=== PATIENT | female | born 1950 | race Caucasian/White ===

== ENCOUNTER 2021-01-08 12:32 | Inpatient (IN) ==
[2021-01-08] MEDS ORDERED: Piperacillin/Tazobac ADVAN 3.375 GM in NS 0.9% 100 ml BAG 100 ML IV ONE (15:41)
[2021-01-08] MEDS ORDERED: Zosyn per Pharmacy NOTE FOLLOW UP SCH (16:00)
[2021-01-08 16:18] LABS: ABS Neutrophils 0.6 10^3/ul (1.5-7.7); Hematocrit 33 % (35-47); Hemoglobin 11.4 g/dL (12.0-16.0); Lymphocyte % 4.1 %; Mean Corpuscular HGB Conc 34 g/dL (31-36); Mean Corpuscular Hemoglobin 32 pg (27-31); Mean Corpuscular Volume 93 fL (80-97); Mean Platelet Volume 7.5 fL (7.4-10.4); Platelet Count 29 10^3/uL (150-450); Red Blood Count 3.59 10^6 /uL (3.70-4.87); Red Cell Distribution Width 15 % (10-15); White Blood Count 0.6 10^3/uL (3.5-10.8)
[2021-01-08 16:48] LABS: Troponin I 0.07 ng/mL (<0.03)
[2021-01-08 16:55] LABS: ALT 53 U/L (7-52); AST 66 U/L (13-39); Albumin 2.6 g/dL (3.2-5.2); Albumin/Globulin Ratio 1.2 (1-3); Alkaline Phosphatase 64 U/L (35-149); Anion Gap 14 mmol/L (2-11); Blood Urea Nitrogen 52 mg/dL (6-24); CO2 Carbon Dioxide 17 mmol/L (22-32); Calcium 6.8 mg/dL (8.6-10.3); Chloride 98 mmol/L (101-111); Globulin 2.1 g/dL (2-4); Glucose 93 mg/dL (70-100); Magnesium 1.3 mg/dL (1.9-2.7); Phosphorus 3.1 mg/dL (2.5-5.0); Potassium 3.8 mmol/L (3.5-5.0); Sodium 129 mmol/L (135-145); Total Protein 4.7 g/dL (6.4-8.9)
[2021-01-08] MEDS ORDERED: Vancomycin per Pharmacy 1 EA NOTE FOLLOW UP SCH (17:00)
[2021-01-08 17:14] LABS: INR 2.66 (0.86-1.15)
[2021-01-08] MEDS ORDERED: .Amiodarone 24HR ONLY IV Protocol Order Note IV ONE (17:32)
[2021-01-08] MEDS: ZOSYN 3.375 GM Q12H per EXTENDED INFUSION IV SCH (17:36)
[2021-01-08] MEDS ORDERED: Amiodarone 150 mg IVPREMIX 150 MG/100 ML BAG IV ONE (18:00)
[2021-01-08] MEDS: Ondansetron 4 mg VIAL 2 MG/ML 2 ml VIAL IV PRN (18:03)
[2021-01-08] MEDS ORDERED: Levalbuterol 1.25MG/0.5ML NEB.SOL INH PRN (18:10)
[2021-01-08] MEDS ORDERED: Amiodarone 360 MG IVPREMIX 360 MG/200 ML BAG IV SCH (18:10)
[2021-01-08] MEDS ORDERED: Magnesium Sulf 4 GM/100 ML IV 4,000 MG/100 ML BAG IVPB ONE (18:31)
[2021-01-08 19:04] LABS: Rapid COVID-19 Molecular Undetected (Undetected)
[2021-01-08] MEDS ORDERED: ACETYLCYSTEINE IV ONE ×2 (20:00→21:15)
[2021-01-08] MEDS ORDERED: D5W IV ONE ×2 (20:00→21:15)
[2021-01-08] MEDS: SPIRIVA Respimat (tiotropium) 2.5 mcg/inh Inhaler INH SCH (20:34)
[2021-01-08] MEDS: Mometasone/Formoter 200/5 MDI INH SCH (20:35)
[2021-01-08 20:39] LABS: Troponin I 0.07 ng/mL (<0.03)
[2021-01-08] MEDS ORDERED: LORazepam 2 mg VIAL 1 ml IV PUSH ONE (22:38)
[2021-01-08] MEDS ORDERED: Lorazepam PYXIS KEY PRN (22:38)
[2021-01-08] MEDS: Amiodarone 360 MG IVPREMIX 360 MG/200 ML BAG IV SCH (23:42)
[2021-01-09] MEDS ORDERED: ACETYLCYSTEINE IV ONE (01:23)
[2021-01-09] MEDS ORDERED: D5W IV ONE (01:23)
[2021-01-09 04:42] LABS: Albumin 2.4 g/dL (3.2-5.2); Albumin/Globulin Ratio 1.1 (1-3); Direct Bilirubin 1.7 mg/dL (0.03-0.18); Globulin 2.1 g/dL (2-4); Potassium 3.1 mmol/L (3.5-5.0); Total Bilirubin 2.6 mg/dL (0.2-1.0); Total Protein 4.5 g/dL (6.4-8.9)
[2021-01-09 04:47] LABS: Vancomycin Random 13.4 mcg/mL
[2021-01-09 04:48] LABS: Activated Partial Thrombo Time 29.8 seconds (26.0-38.0); INR 2.47 (0.86-1.15)
[2021-01-09 04:49] LABS: Fibrinogen > 532.4 mg/dL (110.8-404.3)
[2021-01-09 04:54] LABS: Burr Cells 2+
[2021-01-09 04:56] LABS: Schistocytes ABSENT
[2021-01-09 04:56] LABS: ABS Neutrophils 0.4 10^3/ul (1.5-7.7); Eosinophil % 0.4 %; Hematocrit 32 % (35-47); Hemoglobin 10.9 g/dL (12.0-16.0); Lymphocyte % 10.4 %; Mean Corpuscular HGB Conc 34 g/dL (31-36); Mean Corpuscular Hemoglobin 32 pg (27-31); Mean Corpuscular Volume 93 fL (80-97); Mean Platelet Volume 8.9 fL (7.4-10.4); Platelet Count 14 10^3/uL (150-450); Red Blood Count 3.46 10^6 /uL (3.70-4.87); Red Cell Distribution Width 15 % (10-15); White Blood Count 0.5 10^3/uL (3.5-10.8)
[2021-01-09] MEDS ORDERED: Vancomycin Random Level NOTE FOLLOW UP ONE (06:00)
[2021-01-09] MEDS ORDERED: Potassium Chlor 20 meq TAB.ER PO SCH (06:00)
[2021-01-09 06:11] LABS: Magnesium 3.1 mg/dL (1.9-2.7)
[2021-01-09] MEDS: ZOSYN 3.375 GM Q12H per EXTENDED INFUSION IV SCH (06:23)
[2021-01-09] MEDS: Mometasone/Formoter 200/5 MDI INH SCH ×2 (07:19→19:13)
[2021-01-09] MEDS: SPIRIVA Respimat (tiotropium) 2.5 mcg/inh Inhaler INH SCH (07:19)
[2021-01-09] MEDS ORDERED: Vancomycin 1,000 MG - ONCE IVPB ONE (08:00)
[2021-01-09] MEDS: KCL 20 MEQ/100 ML IVPREMIX 20 MEQ/100 ML BAG IV SCH ×2 (08:20→11:22)
[2021-01-09] MEDS ORDERED: Lactated Ringers 1000 ml BAG 1,000 ML IV ONE (08:50)
[2021-01-09] MEDS ORDERED: NS 0.9% w/ 20 Meq KCL 1000 ml 1,000 ML IV SCH (09:00)
[2021-01-09] MEDS ORDERED: CMCS: Simvastatin 20 mg TAB (NF) PO SCH (09:00)
[2021-01-09 11:00] LABS: Phosphorus 3.5 mg/dL (2.5-5.0)
[2021-01-09] MEDS ORDERED: Albuterol/Ipratropium NEB.SOL (2.5/0.5 MG) 3 ML NEB.SOLN INH SCH ×2 (11:00→13:00)
[2021-01-09] MEDS: Pantoprazole VIAL 40 MG VIAL IV SCH (11:22)
[2021-01-09] MEDS: methylPREDNISolone SOD 40 mg/ml 1 ml VIAL IV SCH ×2 (11:22→21:57)
[2021-01-09] MEDS: Amiodarone 360 MG IVPREMIX 360 MG/200 ML BAG IV SCH (11:37)
[2021-01-09] MEDS: Esmolol 10 MG/ML IVPREMIX 2,500 MG/250 ML BAG IV SCH ×2 (12:00→23:52)
[2021-01-09] MEDS: Levalbuterol 0.63MG/3ML NEB UNIT OF USE INH SCH ×4 (13:47→23:56)
[2021-01-09 15:55] LABS: Urine Appearance Turbid; Urine Bilirubin Negative (Negative); Urine Blood 3+ (Negative); Urine Color Amber; Urine Glucose Negative (Negative); Urine Ketones 1+ (Negative); Urine Nitrite Negative (Negative); Urine Protein 2+(100 mg/dL) (Negative); Urine Specific Gravity 1.016 (1.002-1.030); Urine Urobilinogen Negative (Negative)
[2021-01-09 16:00] LABS: Urine Bacteria Absent (Absent); Urine Red Blood Cell 3+(>10/hpf) (Absent); Urine White Blood Cell Trace(0-5/hpf) (Absent)
[2021-01-09] MEDS ORDERED: Morphine 2 MG/ML SYRINGE IV PRN (16:21)
[2021-01-09 17:55] LABS: Albumin 2.3 g/dL (3.2-5.2); Albumin/Globulin Ratio 1.2 (1-3); Calcium 7.2 mg/dL (8.6-10.3); Globulin 1.9 g/dL (2-4); Potassium 3.9 mmol/L (3.5-5.0); Total Bilirubin 2.5 mg/dL (0.2-1.0); Total Protein 4.2 g/dL (6.4-8.9)
[2021-01-09 17:56] LABS: Ammonia 86 mcmol/L (16-53)
[2021-01-09] MEDS: Meropenem 1 GM PREMIX(*) 1 GM/50 ML BAG IV SCH (17:58)
[2021-01-09 18:01] LABS: BNP 400 pg/mL (<=100)
[2021-01-09 18:07] LABS: INR 2.45 (0.86-1.15)
[2021-01-09 18:17] LABS: Hematocrit 31 % (35-47); Hemoglobin 10.4 g/dL (12.0-16.0); Mean Corpuscular HGB Conc 34 g/dL (31-36); Mean Corpuscular Hemoglobin 32 pg (27-31); Mean Corpuscular Volume 93 fL (80-97); Mean Platelet Volume 9.4 fL (7.4-10.4); Platelet Count 8 10^3/uL (150-450); Red Blood Count 3.29 10^6 /uL (3.70-4.87); Red Cell Distribution Width 15 % (10-15); White Blood Count 0.6 10^3/uL (3.5-10.8)
[2021-01-09 18:20] LABS: Urine Creatinine Concentration 49.59 mg/dL
[2021-01-09 18:45] LABS: ABS Lymphocytes 0.1 10^3/ul (1.0-4.8); ABS Neutrophils 0.5 10^3/ul (1.5-7.7); Eosinophil % 0.1 %; Lymphocyte % 10.2 %; Nucleated Red Blood Cells % 0.3
[2021-01-09] MEDS ORDERED: Lactulose 300 ML for PR 200 GM/300 ML BTL PR SCH (21:00)
[2021-01-09] MEDS: Ondansetron 4 mg VIAL 2 MG/ML 2 ml VIAL IV PRN (21:21)
[2021-01-10] MEDS: Levalbuterol 0.63MG/3ML NEB UNIT OF USE INH SCH ×5 (04:11→19:26)
[2021-01-10 04:24] LABS: Mean Platelet Volume 6.8 fL (7.4-10.4); Platelet Count 42 10^3/uL (150-450)
[2021-01-10 04:27] LABS: ABS Neutrophils 0.6 10^3/ul (1.5-7.7); Eosinophil % 0.4 %; Hematocrit 28 % (35-47); Hemoglobin 9.8 g/dL (12.0-16.0); Lymphocyte % 6.3 %; Mean Corpuscular HGB Conc 35 g/dL (31-36); Mean Corpuscular Hemoglobin 31 pg (27-31); Mean Corpuscular Volume 90 fL (80-97); Mean Platelet Volume 6.6 fL (7.4-10.4); Nucleated Red Blood Cells % 0.4; Platelet Count 40 10^3/uL (150-450); Red Blood Count 3.13 10^6 /uL (3.70-4.87); Red Cell Distribution Width 15 % (10-15); White Blood Count 0.7 10^3/uL (3.5-10.8)
[2021-01-10 04:35] LABS: Albumin 2.3 g/dL (3.2-5.2); Albumin/Globulin Ratio 1.2 (1-3); Calcium 7.4 mg/dL (8.6-10.3); Globulin 1.9 g/dL (2-4); Magnesium 2.6 mg/dL (1.9-2.7); Phosphorus 5.4 mg/dL (2.5-5.0); Potassium 3.8 mmol/L (3.5-5.0); Total Bilirubin 2.5 mg/dL (0.2-1.0); Total Protein 4.2 g/dL (6.4-8.9)
[2021-01-10 05:04] LABS: Vancomycin Random 22.7 mcg/mL
[2021-01-10] MEDS: Ondansetron 4 mg VIAL 2 MG/ML 2 ml VIAL IV PRN ×2 (05:17→11:28)
[2021-01-10] MEDS: Meropenem 1 GM PREMIX(*) 1 GM/50 ML BAG IV SCH ×2 (05:56→17:16)
[2021-01-10] MEDS ORDERED: Vancomycin Random Level NOTE FOLLOW UP ONE (06:00)
[2021-01-10] MEDS: SPIRIVA Respimat (tiotropium) 2.5 mcg/inh Inhaler INH SCH (07:09)
[2021-01-10] MEDS: Mometasone/Formoter 200/5 MDI INH SCH ×2 (07:09→19:27)
[2021-01-10] MEDS: Pantoprazole VIAL 40 MG VIAL IV SCH (08:31)
[2021-01-10] MEDS: methylPREDNISolone SOD 40 mg/ml 1 ml VIAL IV SCH (11:28)
[2021-01-10] MEDS: Esmolol 10 MG/ML IVPREMIX 2,500 MG/250 ML BAG IV SCH (12:55)
[2021-01-10] MEDS ORDERED: NORMOSOL-R pH 7.4 1000 mL BAG 1,000 ML IV SCH (14:00)
[2021-01-10] MEDS ORDERED: Morphine 2 MG/ML SYRINGE IV ONE (17:39)
[2021-01-10] MEDS ORDERED: Morphine 2 MG/ML SYRINGE ONE (17:40)
[2021-01-11] LABS: Calcium 7.8 mg/dL (8.6-10.3); Magnesium 2.7 mg/dL (1.9-2.7); Phosphorus 6.9 mg/dL (2.5-5.0); Potassium 4.1 mmol/L (3.5-5.0)
[2021-01-11 00:01] LABS: Hematocrit 29 % (35-47); Hemoglobin 10.1 g/dL (12.0-16.0); Mean Corpuscular HGB Conc 35 g/dL (31-36); Mean Corpuscular Hemoglobin 31 pg (27-31); Mean Corpuscular Volume 91 fL (80-97); Mean Platelet Volume 8.9 fL (7.4-10.4); Platelet Count 10 10^3/uL (150-450); Red Blood Count 3.21 10^6 /uL (3.70-4.87); Red Cell Distribution Width 15 % (10-15)
[2021-01-11 00:49] LABS: Burr Cells 3+
[2021-01-11 00:53] LABS: ABS Neutrophils 0.2 10^3/ul (1.5-7.7)
[2021-01-11 00:54] LABS: ABS Lymphocytes 0.1 10^3/ul (1.0-4.8)
[2021-01-11 00:55] LABS: White Blood Count 0.6 10^3/uL (3.5-10.8)
[2021-01-11] MEDS: Esmolol 10 MG/ML IVPREMIX 2,500 MG/250 ML BAG IV SCH (02:01)
[2021-01-11] MEDS: Levalbuterol 0.63MG/3ML NEB UNIT OF USE INH SCH ×3 (03:52→19:17)
[2021-01-11] MEDS: Meropenem 1 GM PREMIX(*) 1 GM/50 ML BAG IV SCH (04:46)
[2021-01-11 05:09] LABS: ABS Lymphocytes 0.1 10^3/ul (1.0-4.8); ABS Monocytes 0.3 10^3/ul (0-0.8); ABS Neutrophils 0.1 10^3/ul (1.5-7.7); Eosinophil % 4.3 %; Hematocrit 29 % (35-47); Lymphocyte % 23.6 %; Mean Corpuscular HGB Conc 35 g/dL (31-36); Mean Corpuscular Hemoglobin 32 pg (27-31); Mean Corpuscular Volume 91 fL (80-97); Mean Platelet Volume 11.1 fL (7.4-10.4); Nucleated Red Blood Cells % 0.6; Platelet Count 8 10^3/uL (150-450); Red Blood Count 3.17 10^6 /uL (3.70-4.87); Red Cell Distribution Width 16 % (10-15); White Blood Count 0.6 10^3/uL (3.5-10.8)
[2021-01-11 05:24] LABS: Magnesium 2.8 mg/dL (1.9-2.7); Phosphorus 7.4 mg/dL (2.5-5.0); Potassium 4.1 mmol/L (3.5-5.0)
[2021-01-11] MEDS: Mometasone/Formoter 200/5 MDI INH SCH ×2 (07:28→19:17)
[2021-01-11] MEDS: SPIRIVA Respimat (tiotropium) 2.5 mcg/inh Inhaler INH SCH (07:30)
[2021-01-11] MEDS ORDERED: Desmopressin Acetate 20 MCG in NS 0.9% 50 ML 50 ML IVPB ONE (08:10)
[2021-01-11] MEDS: Pantoprazole VIAL 40 MG VIAL IV SCH (08:47)
[2021-01-11] MEDS: methylPREDNISolone SOD 40 mg/ml 1 ml VIAL IV SCH (08:47)
[2021-01-11 09:44] LABS: Hematocrit 28 % (35-47); Hemoglobin 9.8 g/dL (12.0-16.0); Mean Corpuscular HGB Conc 35 g/dL (31-36); Mean Corpuscular Hemoglobin 32 pg (27-31); Mean Corpuscular Volume 91 fL (80-97); Mean Platelet Volume 6.5 fL (7.4-10.4); Platelet Count 39 10^3/uL (150-450); RBC Morphology Normal (Normal); Red Blood Count 3.05 10^6 /uL (3.70-4.87); Red Cell Distribution Width 16 % (10-15); White Blood Count 0.6 10^3/uL (3.5-10.8)
[2021-01-11 09:45] LABS: ABS Lymphocytes 0.1 10^3/ul (1.0-4.8)
[2021-01-11 09:46] LABS: ABS Neutrophils 0.5 10^3/ul (1.5-7.7)
[2021-01-11] MEDS ORDERED: Lactulose 30 ml UDC PO ONE (11:33)
[2021-01-11] MEDS ORDERED: Metoprolol Tartrate 5 mg VIAL 5 ml VIAL (1 mg/ml) IV PRN ×3 (11:34→11:41)
[2021-01-11] MEDS ORDERED: NORMOSOL-R pH 7.4 1000 mL BAG 1,000 ML IV SCH (13:00)
[2021-01-11 13:36] LABS: Platelet Count 14 10^3/ul (150-450)
[2021-01-11] MEDS: Magic MouthWash1-BEN/MAAL/LIDO 180 ML BTL SWISH SPIT SCH ×2 (15:12→21:04)
[2021-01-12] MEDS: Levalbuterol 0.63MG/3ML NEB UNIT OF USE INH SCH ×2 (04:40→21:00)
[2021-01-12 05:03] LABS: PCO2 Arterial 34 mmHg (35-45); PO2 Arterial 102 mmHg (80-100)
[2021-01-12] MEDS: Meropenem 1 GM PREMIX(*) 1 GM/50 ML BAG IV SCH (05:39)
[2021-01-12 05:44] LABS: Calcium 8.4 mg/dL (8.6-10.3); Magnesium 2.8 mg/dL (1.9-2.7); Potassium 4.1 mmol/L (3.5-5.0)
[2021-01-12] MEDS ORDERED: Metoprolol Tartrate 5 mg VIAL 5 ml VIAL (1 mg/ml) IV PRN (05:46)
[2021-01-12 05:50] LABS: Phosphorus 9.4 mg/dL (2.5-5.0)
[2021-01-12] MEDS: Metoprolol Tartrate 5 mg VIAL 5 ml VIAL (1 mg/ml) IV PRN ×3 (06:07→23:25)
[2021-01-12 06:51] LABS: ABS Lymphocytes 0.2 10^3/ul (1.0-4.8); ABS Monocytes 0.1 10^3/ul (0-0.8); ABS Neutrophils 0.1 10^3/ul (1.5-7.7); Eosinophil % 1.9 %; Hematocrit 27 % (35-47); Hemoglobin 9.5 g/dL (12.0-16.0); Lymphocyte % 35.2 %; Mean Corpuscular HGB Conc 35 g/dL (31-36); Mean Corpuscular Hemoglobin 32 pg (27-31); Mean Corpuscular Volume 91 fL (80-97); Mean Platelet Volume 9.3 fL (7.4-10.4); Nucleated Red Blood Cells % 2.3; Platelet Count 12 10^3/uL (150-450); Red Blood Count 2.97 10^6 /uL (3.70-4.87); Red Cell Distribution Width 16 % (10-15); White Blood Count 0.5 10^3/uL (3.5-10.8)
[2021-01-12 06:52] LABS: Anisocytosis 1+; Burr Cells 1+; Target Cells 1+
[2021-01-12] MEDS: Mometasone/Formoter 200/5 MDI INH SCH (09:07)
[2021-01-12] MEDS: Pantoprazole VIAL 40 MG VIAL IV SCH (09:17)
[2021-01-12] MEDS: Magic MouthWash1-BEN/MAAL/LIDO 180 ML BTL SWISH SPIT SCH ×4 (09:18→20:28)
[2021-01-12] MEDS: methylPREDNISolone SOD 40 mg/ml 1 ml VIAL IV SCH (09:18)
[2021-01-12] MEDS: SPIRIVA Respimat (tiotropium) 2.5 mcg/inh Inhaler INH SCH (09:34)
[2021-01-12] MEDS ORDERED: Levalbuterol 0.63MG/3ML NEB UNIT OF USE INH PRN (09:37)
[2021-01-12] MEDS ORDERED: Desmopressin Acetate 20 MCG in NS 0.9% 50 ML 50 ML IVPB ONE (11:00)
[2021-01-12] MEDS ORDERED: Lidocaine 1% VIAL 10 MG/ML VIAL ONE ×2 (11:27→14:48)
[2021-01-12] MEDS ORDERED: Dextrose 50% Syringe 50 ml 25 GM/50 ML SYRINGE IV PUSH ONE (11:45)
[2021-01-12] MEDS ORDERED: Dextrose 50% Syringe 50 ml 25 GM/50 ML SYRINGE ONE (11:46)
[2021-01-12] MEDS: Budesonide NEB 0.5 MG/2 ML NEB.SOLN INH SCH ×2 (11:49→19:18)
[2021-01-12 12:00] LABS: INR 4.31 (0.86-1.15)
[2021-01-12] MEDS ORDERED: Midazolam 2 mg/2 ml VIAL 1 mg/ml 2 ml VIAL (2 mg) ONE (12:00)
[2021-01-12] MEDS ORDERED: fentaNYL 100 mcg/2 ml 50 MCG/ML VIAL ONE (12:21)
[2021-01-12] MEDS ORDERED: Heparin 1,000 UNIT/ML 10 ml (10,000 UNITS) CATHLAB/DIALYSIS DIALYSIS ONE (13:04)
[2021-01-12] MEDS ORDERED: PHENYLEPHRINE DRIP IVPREMIX 50 MG/250 ML BAG IV SCH (14:00)
[2021-01-12 15:56] LABS: Hepatitis B Surface Antigen Nonreactive (Nonreactive)
[2021-01-12] MEDS ORDERED: Bumetanide IV 0.25 MG/ML 4 ml VIAL (1 mg) SLOW PUSH ONE (20:15)
[2021-01-12 23:35] LABS: Hepatitis B Surface Ab Indeterminate (Immune)
[2021-01-12] MEDS ORDERED: Dexmedetomidine 1,000 MCG in NS 0.9% 250 ml 240 ML IV SCH (23:45)
[2021-01-13] MEDS: Levalbuterol 0.63MG/3ML NEB UNIT OF USE INH SCH ×4 (02:40→21:31)
[2021-01-13 04:46] LABS: INR 2.84 (0.86-1.15)
[2021-01-13 04:53] LABS: Albumin 2.5 g/dL (3.2-5.2); Albumin/Globulin Ratio 1.1 (1-3); Calcium 8.4 mg/dL (8.6-10.3); Globulin 2.2 g/dL (2-4); Magnesium 2.4 mg/dL (1.9-2.7); Phosphorus 7.6 mg/dL (2.5-5.0); Potassium 3.9 mmol/L (3.5-5.0); Total Bilirubin 5.3 mg/dL (0.2-1.0); Total Protein 4.7 g/dL (6.4-8.9); eGFR CKD-EPI 10.8 (>60)
[2021-01-13 05:18] LABS: Target Cells 1+
[2021-01-13 05:19] LABS: Burr Cells 1+
[2021-01-13 05:20] LABS: Hematocrit 22 % (35-47); Hemoglobin 7.6 g/dL (12.0-16.0); Mean Corpuscular HGB Conc 35 g/dL (31-36); Mean Corpuscular Hemoglobin 32 pg (27-31); Mean Corpuscular Volume 91 fL (80-97); Mean Platelet Volume 8.8 fL (7.4-10.4); Platelet Count 11 10^3/uL (150-450); Red Blood Count 2.41 10^6 /uL (3.70-4.87); Red Cell Distribution Width 15 % (10-15); White Blood Count 0.6 10^3/uL (3.5-10.8)
[2021-01-13] MEDS: Meropenem 1 GM PREMIX(*) 1 GM/50 ML BAG IV SCH (05:46)
[2021-01-13] MEDS: Metoprolol Tartrate 5 mg VIAL 5 ml VIAL (1 mg/ml) IV PRN (05:46)
[2021-01-13] MEDS ORDERED: Heparin 1,000 UNIT/ML 10 ml (10,000 UNITS) CATHLAB/DIALYSIS DIALYSIS ONE (07:00)
[2021-01-13] MEDS: Budesonide NEB 0.5 MG/2 ML NEB.SOLN INH SCH ×2 (07:29→21:31)
[2021-01-13] MEDS ORDERED: Digoxin IV 0.5 MG/2 ML AMP (0.25 MG/ML) ONE (08:30)
[2021-01-13] MEDS: DIGOXIN PED ONE ×2 (08:35→11:20)
[2021-01-13] MEDS ORDERED: Digoxin IV 0.5 MG/2 ML AMP (0.25 MG/ML) IV SLOW PU ONE ×2 (08:40→12:08)
[2021-01-13] MEDS: Pantoprazole VIAL 40 MG VIAL IV SCH ×2 (10:59→22:50)
[2021-01-13] MEDS: methylPREDNISolone SOD 40 mg/ml 1 ml VIAL IV SCH (10:59)
[2021-01-13] MEDS: PHENYLEPHRINE DRIP IVPREMIX 50 MG/250 ML BAG IV SCH (11:07)
[2021-01-13] MEDS: Magic MouthWash1-BEN/MAAL/LIDO 180 ML BTL SWISH SPIT SCH ×4 (11:07→22:48)
[2021-01-13] MEDS ORDERED: Dextrose 50% VIAL 50 ml IV PRN (12:10)
[2021-01-13] MEDS ORDERED: Dextrose 50% Syringe 50 ml 25 GM/50 ML SYRINGE ONE (12:12)
[2021-01-13] MEDS ORDERED: Morphine 2 MG/ML SYRINGE IV ONE (12:57)
[2021-01-13] MEDS ORDERED: Morphine 2 MG/ML SYRINGE ONE (13:05)
[2021-01-13] MEDS: Morphine 2 MG/ML SYRINGE IV PRN (13:10)
[2021-01-13] MEDS ORDERED: Lidocaine 4% GEL 10 GM TUBE TOPICAL ONE (16:47)
[2021-01-13] MEDS ORDERED: Oral Rinse (Biotene)(NF) 237 ML or 473 ML ORAL RINSE BTL MT SCH (17:00)
[2021-01-13 19:07] LABS: ABS Lymphocytes 0.1 10^3/ul (1.0-4.8); ABS Neutrophils 0.5 10^3/ul (1.5-7.7); ABS Nucleated RBC 0.1 10^3/ul; Eosinophil % 1.1 %; Hematocrit 22 % (35-47); Hemoglobin 7.5 g/dL (12.0-16.0); Lymphocyte % 17.2 %; Mean Corpuscular HGB Conc 35 g/dL (31-36); Mean Corpuscular Hemoglobin 32 pg (27-31); Mean Corpuscular Volume 91 fL (80-97); Nucleated Red Blood Cells % 8.8; Platelet Count 8 10^3/uL (150-450); Red Blood Count 2.38 10^6 /uL (3.70-4.87); Red Cell Distribution Width 16 % (10-15); White Blood Count 0.7 10^3/uL (3.5-10.8)
[2021-01-13] MEDS ORDERED: Desmopressin Acetate 20 MCG in NS 0.9% 50 ML 50 ML IVPB ONE (19:21)
[2021-01-13] MEDS ORDERED: Anidulafungin 100 MG in NS 0.9% 100 ML IVPB SCH (20:00)
[2021-01-13] MEDS: Anidulafungin 200 MG in NS 0.9% 200 ML IVPB ONE (20:55)
[2021-01-14] MEDS: Anidulafungin 200 MG in NS 0.9% 200 ML IVPB ONE (00:12)
[2021-01-14 00:33] LABS: ABS Lymphocytes 0.4 10^3/ul (1.0-4.8); ABS Monocytes 0.1 10^3/ul (0-0.8); ABS Neutrophils 0.4 10^3/ul (1.5-7.7); ABS Nucleated RBC 0.1 10^3/ul; Eosinophil % 3.6 %; Hematocrit 19 % (35-47); Hemoglobin 6.8 g/dL (12.0-16.0); Lymphocyte % 43.5 %; Mean Corpuscular HGB Conc 35 g/dL (31-36); Mean Corpuscular Hemoglobin 32 pg (27-31); Mean Corpuscular Volume 91 fL (80-97); Mean Platelet Volume 7.3 fL (7.4-10.4); Platelet Count 28 10^3/uL (150-450); Red Blood Count 2.14 10^6 /uL (3.70-4.87); Red Cell Distribution Width 16 % (10-15); White Blood Count 0.8 10^3/uL (3.5-10.8)
[2021-01-14] MEDS ORDERED: Bumetanide IV 0.25 MG/ML 4 ml VIAL (1 mg) SLOW PUSH ONE (05:26)
[2021-01-14] MEDS: Levalbuterol 0.63MG/3ML NEB UNIT OF USE INH SCH (05:29)
[2021-01-14] MEDS: PHENYLEPHRINE DRIP IVPREMIX 50 MG/250 ML BAG IV SCH (05:39)
[2021-01-14] MEDS: Meropenem 1 GM PREMIX(*) 1 GM/50 ML BAG IV SCH (06:37)
[2021-01-14 06:39] LABS: Basophilic Stippling 1+; Target Cells 1+
[2021-01-14 06:40] LABS: Anisocytosis 1+
[2021-01-14 06:41] LABS: ABS Lymphocytes 0.9 10^3/ul (1.0-4.8); ABS Monocytes 0.3 10^3/ul (0-0.8); ABS Neutrophils 0.1 10^3/ul (1.5-7.7); ABS Nucleated RBC 0.2 10^3/ul; Eosinophil % 1.3 %; Hematocrit 26 % (35-47); Hemoglobin 8.9 g/dL (12.0-16.0); Lymphocyte % 70.4 %; Mean Corpuscular HGB Conc 34 g/dL (31-36); Mean Corpuscular Hemoglobin 30 pg (27-31); Mean Corpuscular Volume 87 fL (80-97); Mean Platelet Volume 8.7 fL (7.4-10.4); Nucleated Red Blood Cells % 16.6; Platelet Count 14 10^3/uL (150-450); Red Cell Distribution Width 17 % (10-15); White Blood Count 1.3 10^3/uL (3.5-10.8)
[2021-01-14 06:47] LABS: INR 4.71 (0.86-1.15)
[2021-01-14] MEDS: Budesonide NEB 0.5 MG/2 ML NEB.SOLN INH SCH (07:01)
[2021-01-14 07:13] LABS: Magnesium 2.3 mg/dL (1.9-2.7)
[2021-01-14 07:14] LABS: Albumin 2.4 g/dL (3.2-5.2); Calcium 8.4 mg/dL (8.6-10.3); Potassium 4.7 mmol/L (3.5-5.0); Total Bilirubin 7.9 mg/dL (0.2-1.0)
[2021-01-14 07:20] LABS: Albumin/Globulin Ratio 1.2 (1-3); Phosphorus 6.4 mg/dL (2.5-5.0); Total Protein 4.4 g/dL (6.4-8.9)
[2021-01-14 07:51] LABS: eGFR CKD-EPI 12.8 (>60)
[2021-01-14] MEDS: Magic MouthWash1-BEN/MAAL/LIDO 180 ML BTL SWISH SPIT SCH (07:52)
[2021-01-14] MEDS: methylPREDNISolone SOD 40 mg/ml 1 ml VIAL IV SCH (08:18)
[2021-01-14] MEDS: Pantoprazole VIAL 40 MG VIAL IV SCH (08:18)
[2021-01-14] MEDS: Morphine 2 MG/ML SYRINGE IV PRN (08:44)
[2021-01-14 10:00] LABS: Direct Bilirubin 4.8 mg/dL (0.03-0.18)
[2021-01-14 12:19] VITALS: BP 84/50
[2021-01-14] MEDS ORDERED: Anidulafungin 100 MG in NS 0.9% 100 ML IVPB SCH (23:30)
== END 2021-01-14 09:58 | disposition expired | DRG 871 ==
LOC: ICU 15:36
PROVIDERS: ADMIT Internal Medicine; ATTEND Internal Medicine